=== PATIENT | male | born 1955 | race Caucasian/White ===

== ENCOUNTER 2020-03-25 12:06 | Emergency (ER) | payer MEDICARE, SELFPAY ==
--- NOTE | 2020-03-25 12:19 | ED.GENADULT ---
HPI - General Adult General Chief complaint: Skin/Abscess/Foreign Body Stated complaint: bump on right side of head Time Seen by Provider: 03/25/20 12:19 Source: patient Mode of arrival: ambulatory Limitations: no limitations History of Present Illness HPI narrative: 64-year-old male patient presents to the [facility] with complaints of a bump to the right side of his head he has had there for about a week. Patient states he seen his primary doctor on Wednesday and was told it was just a wart that he nicked. Patient states that his can continue to grow and get worse and states that this morning he woke up with a little bit of drainage and states that the pressure was a little bit better. Patient denies any fevers, body aches or chills. Denies chest pain or shortness of breath. Patient denies any history of diabetes. Related Data Allergies Allergy/AdvReac Type Severity Reaction Status Date / Time Penicillins Allergy Unknown Unknown Verified 03/25/20 13:09 Review of Systems Review of Systems: Narrative: CONSTITUTIONAL: Denies fever, chills, or sweats. EYES: Denies visual changes, redness, or discharge. ENT: Denies rhinorrhea, congestion, sore throat, or otalgia. CARDIOVASCULAR: Denies chest pain, palpitations, or edema. RESPIRATORY: Denies cough or dyspnea. GASTROINTESTINAL: Denies abdominal pain, nausea, vomiting, or diarrhea. GENITOURINARY: Denies dysuria or hematuria. SKIN: Denies rash or itching. Positive wound to right side of head x1 week MUSCULOSKELETAL: Denies back pain, joint pain, or myalgia. NEUROLOGIC: Denies headache, numbness, or weakness. PSYCHIATRIC: Denies anxiety or depression. PMFSH Comments At the time of my signature I agree with nursing past medical history, surgical, social, and family history. There is no relevant family history pertinent to the presenting complaint. Exam Narrative: Exam Narrative: GENERAL: Well-appearing, well-nourished, and in no acute distress. HEAD: Normocephalic, atraumatic. EYES: PERRLA and EOMI. ENT: Nares clear, no rhinorrhea or epistaxis. Mucous membranes moist. NECK: Supple. No lymphadenopathy CHEST: Clear to auscultation. No respiratory distress. HEART: Regular rate and rhythm. No murmur heard. Normal peripheral pulses. ABDOMEN: Soft, nontender, nondistended, normal active bowel sounds. EXTREMITIES: Normal range of motion. No edema. SKIN: Warm, dry, no rash. Patient has what appears to be an abscess noted right above the ear on the right side of the head. It measures approximately 3 cm x 2 and half centimeters. There is a little bit of some red/yellow pus discharge coming from the wound. Patient does have tenderness to the touch. No warmth noted. NEURO: No focal deficits. Alert and oriented x3. Course Vital Signs Vital signs: Vital Signs Temperature 36.8 C 03/25/20 12:30 Pulse Rate 93 03/25/20 12:30 Respiratory Rate 20 03/25/20 12:30 Blood Pressure 123/82 03/25/20 12:30 Pulse Oximetry 100 03/25/20 12:30 Temperature 36.8 C 03/25/20 12:30 Pulse Rate 93 03/25/20 12:30 Respiratory Rate 20 03/25/20 12:30 Blood Pressure 123/82 03/25/20 12:30 Pulse Oximetry 100 03/25/20 12:30 Vital signs reviewed The patient has been informed that they may have pre-hypertension or Hypertension based on a BP reading in the department. I recommend that the patient call the primary care provider listed on their discharge instructions or a physician of their choice this week to arrange follow up for further evaluation of possible pre-hypertension or Hypertension Procedures Abscess I/D other: Date of Incision: 03/25/20 Time of Incision: 13:05 Side (if applicable): right Sedation/analgesia: other Local Anesthetic: lidocaine 1% Amount of anesthesia used (mL): 3 Technique: incised with #11 blade Irrigation: Yes Packing used?: none I&D Results: Pus and Blood Abcess I&D Additional Comments:
[2020-03-25 12:30] VITALS: BP 123/82; PULSE 93; RESP 20; TEMP 36.8; O2SAT 100
== END 2020-03-25 13:15 | disposition home or self-care (01) ==
PROVIDERS: Emergency Provider Nurse Practitioner Family; PCP Family Medicine
DX: L02.811 Cutaneous abscess of head [any part, except face] (principal)
CPT/HCPCS: 10060; 87070; 87147; 87186; 87205; 99213; G0463